=== PATIENT | male | born 1930 | race Caucasian/White ===

== ENCOUNTER 2016-10-27 07:07 | Emergency (ER) | payer MEDICARE, OTHER ==
[~2016-10-27 07:07] MED LIST: ASPIRIN EC81 M1 PO; ASPIRIN PO; ATORVASTATIN CA10 MG PO; BACTROBAN22 GM TOP; CARAFATE PO; EC-NAPROSYN500 MG; GALANTAMINE4 MG PO; LIPITOR PO; LOPRESSOR PO; METOPROLOL SUCC25 MG PO; NEPHROCAPS1 CAP PO; NEXIUM PO; NEXIUM40 MG/PACK PO; NORCO 5/325 TAB1 TAB; PRILOSEC PO; VIBRAMYCIN100 M1 PO
== END 2016-10-27 08:15 | disposition home or self-care (01) ==
LOC: CED 07:07
DX: L76.22 Postprocedural hemorrhage of skin and subcutaneous tissue following other procedure (principal); Z85.828 Personal history of other malignant neoplasm of skin; Z88.1 Allergy status to other antibiotic agents; Z88.5 Allergy status to narcotic agent
CPT/HCPCS: 12001; 99283